=== PATIENT | male | born 1955 | race Caucasian/White ===

== ENCOUNTER 2022-07-02 18:25 | Emergency (ER) | payer BC, OTHER ==
[~2022-07-02] VITALS: Ht 175.3 cm; Wt 71.2 kg
[~2022-07-02 18:25] MED LIST: AMLODIPINE PO; LEVE500T19 PO; LISI20TA24 PO; ROPI0.5T7 PO
[2022-07-02] MEDS ORDERED: HYDROCODONE/ACETAMINOPHEN 5/325 MG TAB PO ONE (19:00)
[2022-07-02] MEDS ORDERED: NAPR-1180 PO (20:19)
[2022-07-02 20:31] VITALS: BP 131/63
== END 2022-07-02 20:38 | disposition home or self-care (01) ==
LOC: EDH 18:25
DX: S60.222A Contusion of left hand, initial encounter (principal); I10 Essential (primary) hypertension; Z79.899 Other long term (current) drug therapy; W23.0XXA Caught, crushed, jammed, or pinched between moving objects, initial encounter; Y93.89 Activity, other specified; Y92.89 Other specified places as the place of occurrence of the external cause; Y99.8 Other external cause status
CPT/HCPCS: 73130